=== PATIENT | male | born 1950 | race Caucasian/White ===

== ENCOUNTER 2021-02-07 19:10 | Inpatient (IN) | payer OTHER ==
[~2021-02-07] VITALS: Ht 182.9 cm; Wt 117.9 kg
--- NOTE | 2021-02-07 19:22 | NUR ---
PTE ALERTA Y ORIENTADO X 3 ESFERAS SIN FAMILIAR EN AMBULANCIA,TRANSFERIDO DE METRO GUMARO,PTE CON ABDOMEN DISTENDIDO,OSTOMIA EN LADO RT,REFIERE DOLOR ABDOMINAL DESDE HACE 3 ORTEGA.SE HARMAN S/V Y SE UBICA EN JORDEN CON BARANDAS.
--- NOTE | 2021-02-07 19:26 | NUR ---
PTE CANALIZADO EN BRAZO LT CON FLUIDOS DE MANTENIMIENTO BAJANDO SIN DIFICULTAD,PATENTE Y HATTIE DE EDEMA.
--- NOTE | 2021-02-07 20:14 | NUR ---
SE ORIENTA SOBRE EL TX. SE EXTRAEN MMUESTRAS DE ZAHRAA BAJO MEDIDAS ASPETICAS SE ROTULAN Y ENVIAN AL LABORATORIO . PTE PREVIAMENTE CANALIZADO EN LULÚ CONLEY. SE ADMINISTRA MEDICAMENTO SHAYLEE ORDEN MEDICA.
== END 2021-02-10 22:37 | disposition expired | DRG 389 ==
LOC: ER 19:10 → SURH 02-08 00:51 → SEC-K 02-08 00:51 → SURH 02-08 04:21
PROVIDERS: ADMIT Surgery; ATTEND Surgery
PROC: 02HV33Z Insertion of Infusion Device into Superior Vena Cava, Percutaneous Approach (ICD-10-PCS; principal; 2021-02-07)
PROC: 0BH17EZ Insertion of Endotracheal Airway into Trachea, Via Natural or Artificial Opening (ICD-10-PCS; 2021-02-10)
DX: K56.600 Partial intestinal obstruction, unspecified as to cause (principal); N17.8 Other acute kidney failure; E86.0 Dehydration; E87.6 Hypokalemia; K43.5 Parastomal hernia without obstruction or gangrene; Z85.048 Personal history of other malignant neoplasm of rectum, rectosigmoid junction, and anus